=== PATIENT | male | born 1930 | race Native Hawaiian/Other Pacific Islander ===

== ENCOUNTER 2016-04-17 10:10 | Inpatient (IN) | payer OTHER ==
[2016-04-16 19:25] VITALS: BP 125/42
[~2016-04-17] VITALS: Ht 175.3 cm; Wt 90.7 kg
[2016-04-17] VITALS (22 sets, daily range): BP systolic 107–139; BP diastolic 43–57; TEMP 98.9–103
--- NOTE | 2016-04-17 09:27 | NUR ---
PT ARRIVED FROM [facility] VIA BED ACCOMPANIED BY [facility] STAFF, O2 GOING AT 2LPM VIA NC, IV 22G RFA INTACT SALINE LOCK, PT TRANSFERRED TO ICU BED AND PLACED ON MONITOR, O2 SAT INITIALLY 88% ON 2 LPM VIA NC, PT PLACED ON VENTI MASK AT 50% AND O2 SAT CAME UP TO 98%. 16 FR JIMENEZ CATH INTACT. REPORT GIVEN TO JJ OLEARY RN FROM [facility] AT [facility]. REPORT THAT PT HAS NOT BEEN EATING AND IS DROWSY, TEMP OF 102 THIS MORNING AT 0600, TEMP UPON ARRIVAL TO UNIT WAS 103.0 AXILLARY. TYLENOL 650 MG HI OVERRODE FROM OMNICELL AND GIVEN PER ORDER OF DR. IRIZARRY. UNABLE TO SCAN MEDICATION DUE TO PT NOT BEING REGISTERED AT TIME OF DOSE. (OK'ED BY VIRIDIANA FULLER LPN). WILL MONITOR.
[~2016-04-17 10:10] MED LIST: ACCU-CHEK; ACID CONTROL10 MG PO; ARANESP IJ; ASPIRIN LOW STR81 MG PO; ATIVAN2 MG PO; BRIMONIDINE0.2 % OP; BUSPIRONE10 MG PO; CLON0.5T36 PO; CORRECTOL100 MG PO; ECOTRIN REGULA325 MG PO; IRON325 MG PO; LIPITOR20 MG PO; LORA2INJ21 INJ; LORTAB 10-325 M1 TAB PO; NEURONTIN 100M100 MG PO; ONDA4TAB3 PO; PACERONE200 MG PO; POLY3350 PO; REFRESH TEARS0.5 % OP; SEROQUEL25 MG PO; SERT50TA PO; TRAZ50TA36 PO; VITAMIN B-121000 MCG PO; XALATAN0.005 % OP; [UNRECOGNIZED DRUG - OTHER] PO
--- NOTE | 2016-04-17 10:47 | NUR ---
X-RAY HERE TAKING CHEST X-RAY AT THIS TIME.
--- NOTE | 2016-04-17 10:53 | NUR ---
DR. IRIZARRY HERE MAKING ROUNDS WITH KODI.
--- NOTE | 2016-04-17 15:50 | NUR ---
PT CALLED AND GAVE CODE THAT WAS ESTABLISHED FROM WHEN PT WAS AT [facility]IT, ASKING TO SPEAK WITH PT, PHONE TAKEN OVER AND HELD TO PTS EAR. PT VOCALIZED . UPDATED THAT WE ARE MONITORING PT CLOSELY. SHE STATED SHE WOULDNT BE ABLE TO COME VISIT PT BECAUSE SHE DOESNT HAVE A WAY TO GO AND SHE LIVES IN [place]. STATED SHE WOULD CALL BACK LATER TO CHECK ON PT. WILL MONITOR.
[2016-04-17] MEDS ORDERED: HYDR10TA47 PO (17:35)
[2016-04-17] MEDS ORDERED: PANT40TA PO (17:38)
--- NOTE | 2016-04-17 18:15 | NUR ---
SPOKE WITH DR. IRIZARRY ABOUT PT URINE OUTPUT OF 250 ML FOR ENTIRE SHIFT, NEW ORDERS RECIEVED TO START NORMAL SALINE AT 125 ML/HR AND REPEAT BNPEPTIDE AT 0600 IN MORNING WITH MORNING LABS, WILL MONITOR.
--- NOTE | 2016-04-17 20:31 | NUR ---
PT'S CALLED TO CHECK ON PT.
[2016-04-18] VITALS (26 sets, daily range): BP systolic 77–165; BP diastolic 38–70; TEMP 98–100.8
[2016-04-18 05:57] LABS: PLATELET COUNT 257 K/uL (142-355)
--- NOTE | 2016-04-18 08:00 | NUR ---
PTS RHYTHM ST TO AFIB, HR 115-137
--- NOTE | 2016-04-18 09:32 | NUR ---
PT CLEANED AND DRYED OF BM.
--- NOTE | 2016-04-18 12:09 | NUR ---
PT STATES THAT HE HAS TO USE THE BATHROOM, PT STATES THAT HE NEEDS TO PEE, PT WAS INFORMED THAT HE HAD A JIMENEZ CATH AND WAS SHOWN THE CATH AND EXPLAINED THE USE.
--- NOTE | 2016-04-18 14:03 | NUR ---
MOUTHCARE DONE, PT WAS ASKED IT THAT FELT BETTER, HE STATED YES.
--- NOTE | 2016-04-18 15:35 | NUR ---
DR IRIZARRY CALLED TO BS DUE TO PT IN DISTRESS
--- NOTE | 2016-04-18 15:40 | NUR ---
LASIX 60MG IV GIVEN
--- NOTE | 2016-04-18 15:45 | NUR ---
INCREASED CARDIZEM 7.5MG/HR PER MD
--- NOTE | 2016-04-18 15:50 | NUR ---
ATIVAN 1MG IV GIVEN
--- NOTE | 2016-04-18 16:00 | NUR ---
O2% INCREASEED TO 50%. PT CONT IN ST - AFIB
--- NOTE | 2016-04-18 16:32 | NUR ---
STARTED DOPAMINE @3MCG/KG/MIN
--- NOTE | 2016-04-18 17:09 | NUR ---
FIO2 INCREASED 60%
--- NOTE | 2016-04-18 17:10 | NUR ---
INCREASED DOPAMINE 5MCG/KG/MIN DUE TO DECREASED BP MAP 53
--- NOTE | 2016-04-18 18:10 | NUR ---
INCREASED BUMEX 1MG/HR
--- NOTE | 2016-04-18 18:43 | NUR ---
REPORTED CPK TO DR IRIZARRY. ALSO REPORTED THAT DOPAMINE WAS INCREASED, HR 140, BUMEX INCREASED, AND DECREASED UOP.
--- NOTE | 2016-04-18 18:44 | NUR ---
BARBARA TO YEND. PT CURRENTLY ON BIPAP. SATS 96%.
--- NOTE | 2016-04-18 20:00 | NUR ---
PT USING/WEARING BIPAP. CARDIZEM DRIP DECREASED TO 5. HR 119-128. BP IMPROVING. DOPAMINE INFUSING AT 7MCG/KG/MIN. BUMEX DRIP INFUSING AT 1 MG/HR. CM SHOWING SINUS TACH. PT RESTING. JIMENEZ CATHETAR INTACT TO BSD. MONITORING HOURLY OUTPUTS. NO SKIN BREAKDOWN NOTED. PT BEING TURNED AND REPOSTIONED EVERY 2 HOURS.
[2016-04-19] VITALS (31 sets, daily range): BP systolic 105–145; BP diastolic 37–90; TEMP 97–99.5
--- NOTE | 2016-04-19 01:28 | NUR ---
0000PM PT'S ID SCAN WOULD NOT SCAN FOR PIPERACILLAN.
--- NOTE | 2016-04-19 03:26 | NUR ---
BED BATH GIVEN. NOTED SKIN ABRASION SIZE OF A DIME TO BACK SCROTUM AREA. AREA WAS CLEANED WITH SOAP/WATER AND THEN CALAZIME OINTMENT WAS APPLIED TO THIS AREA. SKIN CARE GIVEN. BONY PROMINENCES WERE MASSAGED. NO OTHER SKIN BREAKDOWN NOTED. PT TOLERATED WITHOUT AND DISCOMFORT OR DISTRESS NOTED. CM WITH SINUS RHYTHM. VITAL SIGNS STABLE.
--- NOTE | 2016-04-19 04:01 | NUR ---
CARDIZEM DRIP TITRATED OFF. MONITORING BP AND HEART RATE. DOPAMINE INFUSING AT 17.6MCG/KG/MINUTE. BUMEX INFUSING AT 5 MG/5ML VIA PUMP.
--- NOTE | 2016-04-19 05:50 | NUR ---
LABS DRAWN AND UA SENT TO LAB. EMPTIED 550 ML OF YELLOW URINE.PT DOES RESPOND. OPENS EYES AND MOVES HEAD. DOPAMINE INFUSING 17.6 ML/HR VIA PUMP. BUMEX AT 5 MG/5 ML. URINE OUTPUT 550 ML. URINE IS CLEARER. LUNGS CTA. HEART SOUNDS STRONG AND BOUNDING. CM AT 84-86.
[2016-04-19 06:14] LABS: PLATELET COUNT 243 K/uL (142-355)
--- NOTE | 2016-04-19 07:30 | NUR ---
AM ASSESSMENT DONE. RT HERE FOR EKG AND BREATHING TX.
--- NOTE | 2016-04-19 08:40 | NUR ---
LAB REPORTED PT'S BLOOD CULTURES ARE POSITIVE FOR STREP PNEUMONIA. DR. IRIZARRY NOTIFIED. PT REPOSITIONED TO L SIDE.
--- NOTE | 2016-04-19 09:54 | NUR ---
PT OFF OF BUMEX DRIP. MED NOT AVAILABLE AT THIS TIME. DR. EDIE BONE.
--- NOTE | 2016-04-19 10:04 | NUR ---
REPOSITIONED PT TO R SIDE.
--- NOTE | 2016-04-19 10:15 | NUR ---
DR. IRIZARRY HERE TO SEE PT.
--- NOTE | 2016-04-19 12:15 | NUR ---
FAMILY CALLED TO CHECK ON PT.
--- NOTE | 2016-04-19 14:14 | NUR ---
PT REPOSITIONED TO L SIDE. NAD NOTED AT THIS TIME.
--- NOTE | 2016-04-19 15:56 | NUR ---
HR 85, BP 122/55. SINUS RHYTHM WITH BBB NOTED. DR. IRIZARRY ORDERED CARDIAZEM DRIP @ 3MCG/HR FOR 24 HOURS. DRIP STARTED. WILL CONTINUE TO MONITOR.
--- NOTE | 2016-04-19 18:02 | NUR ---
dopamine drip infusing. new bag started now. on emar its showing for 04/20/16.
--- NOTE | 2016-04-19 19:30 | NUR ---
ASSESSMENT COMPLETED AT THIS TIME. PATIENT OPENS EYES WHEN STANDING AT THE BEDSIDE BUT DOES NOT VERBALLY RESPOND TO SIMPLE COMMANDS. IV 20G TO RFA INFUSING DOPAMINE AND CARDIZEM. JIMENEZ NOTED WITH 25ML OF YELLOW URINE NOTED. BIPAP NOTED AT 60%, SATS 100%, RR-28. SIDERAILS UP X2,CALL VILLEDA WITHIN REACH.
[2016-04-20] VITALS (45 sets, daily range): BP systolic 100–141; BP diastolic 26–54; TEMP 98.2–99.5
--- NOTE | 2016-04-20 07:30 | NUR ---
AM ASSESSMENT DONE. SINUS RYTHM WITH A BBB NOTED ON THE MONITOR. HR 86. PT IS ON A CARDIAZEM DRIP @ 3MG/HR AND DOPAMINE DRIP @ 5MCG/HR, BP128/52. PT IS ON BIPAP O2 SAT 99%. WILL CONTINUE TO MONITOR.
--- NOTE | 2016-04-20 08:00 | NUR ---
REPOSITIONED PT TO L SIDE.
[2016-04-20 08:07] LABS: PLATELET COUNT 260 K/uL (142-355)
[2016-04-20 08:27] LABS: POTASSIUM 4.2 mmol/L (3.6-5.2)
--- NOTE | 2016-04-20 08:50 | NUR ---
LABS REPORTED TO DR. IRIZARRY. NO NEW ORDERS RECEIVED AT THIS TIME.
--- NOTE | 2016-04-20 12:00 | NUR ---
PT RECEIVING 500ML NS BOLUS.
--- NOTE | 2016-04-20 12:48 | NUR ---
DR. IRIZARRY HERE TO SEE PT.
--- NOTE | 2016-04-20 13:15 | NUR ---
FERNANDA NAIR D/C'D PER DR. IRIZARRY'S ORDER.
--- NOTE | 2016-04-20 14:00 | NUR ---
URINE OUTPUT 75ML.
--- NOTE | 2016-04-20 15:16 | NUR ---
PT'S FAMILY CALLED TO CHECK ON PT. NAD NOTED AT THIS TIME.
--- NOTE | 2016-04-20 17:16 | NUR ---
PT REPOSITIONED. WILL CONTINUE TO MONITOR.
--- NOTE | 2016-04-20 20:00 | NUR ---
PM ASSESS. PT. ON BIPAP REGULATED BY RESPIRATORY. PT. ONLY RESPONDS WITH EYES SOME OR WITH A TOUCH HE HAS A TREMOR. I DO NOT KNOW HOW MUCH HE UNDERSTANDS WHEN I TELL HIM WHAT IM DOING, OR WHY I'M DOING. AT THIS POINT HE IS TOTAL CARE PHYSICALLY. HE HAS IV OF NS WITH 1 AMP OF BICARB INFUSING IN LT. FA @ 50ML/HR WITH A 20 GA. DOPAMINE DRIP HANGING @ 5MCG/KG/MIN = 17.6ML/HR WITH A 22GA IN RT FA. BOTH SIGHTS WITHOUT ANY SWELLING OR REDNESS. FOLY CATH WITH GRADUATE NOTED WITH YELLOW URINE AND EMPTIED 125 IN BAG.
--- NOTE | 2016-04-20 20:20 | NUR ---
PT. CALLED TO CHECK ON HIM -GLADYS- LEI. I EXPLAINED THERE IS NOT MUCH THAT HAS CHANGED WITH HIM. WE ARE STILL KEEPING HIM TURNED, HE HAS IV'S ONE TO KEEP HIS BP UP. I EXPLAINED AT HIS AGE HE DOES NOT HAVE MUCH TO FIGHT WITH BUT AT THIS TIME WE ARE DOING ALL WE CAN. I ASKED IF SHE WOULD LIKE ME TO CARRY THE PHONE OVER TO HIM AND HOLD IT TO HIS EAR. HE IS NOT RESPONDING NOW BUT MAYBE HE CAN HEAR YOU TALKING TO HIM. WHEN I CARRIED THE PHONE OVER, I EXPLAINED TO HIM IT WAS HIS LEI ON THE PHONE AND I AM GOING TO PLACE THE PHONE TO YOUR EAR AND LET HER TALK TO YOU. IT DID APPEAR THAT HIS EYES WATERED SOME WHILE SHE WAS TALKING TO HIM. I JUST PRAY HE UNDERSTANDS HER.
--- NOTE | 2016-04-20 20:45 | NUR ---
BLOODSUGAR 160 NO INSULIN GIVEN DUE TO AGE AND BEING HELD NPO.
--- NOTE | 2016-04-20 22:30 | NUR ---
PT NOTED TO BE BREATHING SLIGHTLY FASTER AND BODY WORKING HARDER TEMP TAKEN AND 99.5 AX
--- NOTE | 2016-04-20 22:53 | NUR ---
TYLENOL 650MG SUPP PER RECTUM WITH ASSISTANCE.
--- NOTE | 2016-04-20 23:15 | NUR ---
DOPAMINE INCREASED DUE TO BP 100/36 WITH MEAN OF 54. DOPAMINE INCREASED TO 7.5MGC/KG/MIN = 26.3ML/HR.
[2016-04-21] VITALS (47 sets, daily range): BP systolic 108–140; BP diastolic 37–77; TEMP 98.3–100.1
--- NOTE | 2016-04-21 | NUR ---
PT. TURNED AND REPOSITIONED ARMS AND LEGS ALSO. TEMP RETAKEN 99.5 AX AGAIN. REMOVED THE BLANKET OFF OF HIM.
--- NOTE | 2016-04-21 02:00 | NUR ---
PILLOW REMOVED FROM BACKSIDE TO LAY LOW FOWLERS. ARMS AND LEGS ELEVATED WITH PILLOWS.
--- NOTE | 2016-04-21 04:13 | NUR ---
BED BATH GIVEN AND LOTIONED WITH LUBRIDERM, MOUTH CARE GIVEN AND LINEN CHANGED. TALKING ALL ALONG WHILE CARING FOR HIM FOR STIMULATION.
--- NOTE | 2016-04-21 06:05 | NUR ---
LABS DRAWN AND SENT TO LAB.
--- NOTE | 2016-04-21 07:00 | NUR ---
AM ASSESSMENT COMPLETED. PT IS ON DOPAMINE DRIP AT 7.5 MCG/KG
[2016-04-21 08:27] LABS: POTASSIUM 4.2 mmol/L (3.6-5.2)
--- NOTE | 2016-04-21 08:45 | NUR ---
PT C/O PAIN RIGHT LEG. STATES SHE PULLED A MUSCLE DURING THE NIGHT. PAIN SCALE 10.
--- NOTE | 2016-04-21 09:00 | NUR ---
CBC REDRAWN. TO LAB
[2016-04-21 09:09] LABS: PLATELET COUNT 268 K/uL (142-355)
--- NOTE | 2016-04-21 09:14 | NUR ---
10 UNITS NOVOLOG GIVEN FOR GLUCOSE OF 496
--- NOTE | 2016-04-21 09:24 | NUR ---
RESPIRATORY THERAPIST TO SEE PT
--- NOTE | 2016-04-21 11:15 | NUR ---
DR. IRIZARRY TO SEE PT.
--- NOTE | 2016-04-21 12:02 | NUR ---
RESPIRATORY THERAPIST PRESENT TO OBTAIN ABG
--- NOTE | 2016-04-21 12:16 | NUR ---
LAB PRESENT TO DRAW BLOOD FOR CROSSMATCH.
--- NOTE | 2016-04-21 17:40 | NUR ---
FIRST UNIT PRBC'S INITIATED.
--- NOTE | 2016-04-21 19:30 | NUR ---
RCD PT BLOOD RUNNING NO S/S REACT NOTED OPENS EYES TO VERBAL STIMULUS ON BIPAP O2 60% 16/5 TOLERATING. MONITOR SR,DOPAMINE 7.5MCG/KG/MIN JIMENEZ CLEAR YELLOW URINE.
--- NOTE | 2016-04-21 21:45 | NUR ---
UNIT #1 FINISHED BLOOD D/C BAG TO LAB NOS/S REACT NOTED.
--- NOTE | 2016-04-21 21:52 | NUR ---
UNIT #2 STARTED NO S/S NOTED TURNED AND POSITIONED NO CHANGE NEURO STATUS
--- NOTE | 2016-04-21 23:00 | NUR ---
RESTING NO CHANGE BIPAP MAINTAINED OUT ADEQUATE
[2016-04-22] VITALS (24 sets, daily range): BP systolic 86–137; BP diastolic 36–99; TEMP 99.7–100.8
--- NOTE | 2016-04-22 | NUR ---
NO CHANGE DOPAMINE 7.5 MCG/KG/MIN 26.3ML BLOOD ABSORBING TURNEDAND REPOSITIONED HEELS ELEVATED BIPAP MAINTAINED
--- NOTE | 2016-04-22 00:35 | NUR ---
BLOOD FULLY ABSORBED D/C NOS/S/ REACT NOTED N/S WITH BICARBRESTARTEDAT 50CC/HR BIPAP.DOPAMINE MAINTAINED NO CHANGE.
--- NOTE | 2016-04-22 01:00 | NUR ---
BIPAP MAINTAINEDRESP RAPID/SHALLOW, OUTPUT 100/150 HR DOPAMINE DECREASED TO 5 MCG/KG/MIN 17.6 ML. NSWITH BICARB AT 50CC/HR NO CHANGE IN NEURO STATUS.
--- NOTE | 2016-04-22 02:00 | NUR ---
BP 125/47 MEAN 61 BIPAP MAINTAINED RESPSHALLOW/RAPID NEURO STATUS UNCHANGED
--- NOTE | 2016-04-22 04:00 | NUR ---
NO CHANGE RESP RAPID SHALLOW, LOWER LOBES DIMINISHED RR 30. DOPAMINE CONT AT 5 MCG/KG/MIN BICARB 50CC/HR TURNED AND POSITIONED.
--- NOTE | 2016-04-22 05:29 | NUR ---
BLOOD DRAWN TO LAB X1 TAHMINA NO CHANGE NEURO STATUS.
[2016-04-22 06:03] LABS: PLATELET COUNT 257 K/uL (142-355)
[2016-04-22 06:22] LABS: POTASSIUM 4.4 mmol/L (3.6-5.2)
--- NOTE | 2016-04-22 08:10 | NUR ---
AX TEMP 100.8. TYLENOL SUPP GIVEN. WILL RECHECK.
--- NOTE | 2016-04-22 08:20 | NUR ---
DR. IRIZARRY NOTIFIED OF LABS. NEW ORDERS RECEIVED.
--- NOTE | 2016-04-22 08:44 | NUR ---
AX TEMP 102.2. RR 47. WILL CONTINUE TO MONITOR.
--- NOTE | 2016-04-22 11:00 | NUR ---
dr. west here to see pt.
--- NOTE | 2016-04-22 11:15 | NUR ---
RR 49. PT APPEARS TO BE AGITATED. RECEIVED ORDER FOR ATIVAN. MED GIVEN.
--- NOTE | 2016-04-22 11:30 | NUR ---
RAD HERE FOR CHEST XRAY.
--- NOTE | 2016-04-22 11:50 | NUR ---
PT SEEMS TO BE LESS AGITATED. RR ARE STILL 49. TEMP 100.8 AX. TYLENOL SUPP GIVEN AND CALAMAZINE CREAM APPLIED TO R BUTTOCK.
--- NOTE | 2016-04-22 11:50 | NUR ---
ABG AND BLOOD CULTURES DRAWN.
--- NOTE | 2016-04-22 13:40 | NUR ---
TURNED PT'S SPO2 DOWN ON BIPAP FROM 60% TO 40% TO TRY AND WEAN PT TO TELL IF ABLE TO TAKE PT OFF TO INDUSE AND OBTAIN SPUTUM. SPO2 DROPED FROM 98% TO 92% WITH IN 5 MIN SO O2 WAS TURNED BACK UP TO 60%. DID NOT ATEMPTED TO TAKE OFF BIPAP AT THIS TIME.
--- NOTE | 2016-04-22 14:15 | NUR ---
PT REPOSITIONED. WILL CONTINUE TO MONITOR.
--- NOTE | 2016-04-22 14:54 | NUR ---
AX TEMP 101.4.
--- NOTE | 2016-04-22 14:55 | NUR ---
DECREASED DOPAMINE TO 3MCG/HR. WILL CONTINUE TO MONITOR.
--- NOTE | 2016-04-22 15:08 | NUR ---
PLACED PT ON COOLING BLANKET. RECTAL TEMP 100.7.
--- NOTE | 2016-04-22 16:00 | NUR ---
BATH GIVEN. BED LINENS CHANGED. PT HAS AREAS TO BUTTOCKS THAT APPEARS TO BE SKIN TEARS, THE SKIN LOOKS LIKE ITS SLOUGHING. R BUTTOCKS 3 VERY SMALL 0.1CM AREAS. 2 CENTER OF CRACK PINPOINT AND L BUTTOCKS 0.5W X 3CML AND L BUTTOCKS 0.5W X 0.5L. SKIN TEAR TO SCROTUM 0.5CMW X 1CML. CALAMAZINE CREAM APPLIED TO AREAS. MOUTH CARE DONE. PT'S MOUTH VERY DRY, SQUIRTED WATER IN MOUTH AND SUCTIONED WATER BACK OUT, MIXED PEROXIDE AND WATER AND USED TOOTH BRUSH TO SCRUB MOUTH. LIPS LUBRICATED. PT HAS BREAKDOWN TO FACE WHERE BIPAP MASK IS, LUBRICATE APPLIED AND 4X4S APPLIED TO FACE FOR CUSHION. BIPAP PUT BACK ON PT. HR 110'S, O2 SAT 88%. WILL CONTINUE TO MONITOR.
--- NOTE | 2016-04-22 17:00 | NUR ---
BP 88/39, DOPAMINE DRIP INCREASED TO 5MCG/HR. WILL CONTINUE TO MONITOR.
--- NOTE | 2016-04-22 17:17 | NUR ---
BP 99/45 DOPAMINE INCREASED TO 7.5MCG/HR. WILL CONTINUE TO MONITOR.
--- NOTE | 2016-04-22 17:50 | NUR ---
BP 98/49, HR 115, O2 SAT 98%, RR 47. WILL CONTINUE TO MONITOR.
--- NOTE | 2016-04-22 18:00 | NUR ---
RECTAL TEMP 99.5. COOLING BLANKET OFF AT THIS TIME. WILL CONTINUE TO MONITOR.
[2016-04-23] VITALS (25 sets, daily range): BP systolic 108–134; BP diastolic 36–93; TEMP 97.6–99.5
[2016-04-23 01:23] LABS: POTASSIUM 5.1 mmol/L (3.6-5.2)
--- NOTE | 2016-04-23 01:36 | NUR ---
DR. IRIZARRY NOTIFIED OF CRIT LAB VALUES: RUN 209 AND CREATININE 7.0; NO NEW ORDERS GIVEN.
--- NOTE | 2016-04-23 02:56 | NUR ---
CHANGE IN RESP FUNCTION OBSERVED, WITH BRIEF INTERVALS OF APNEA; RESP DECREASED TO 18. PER RT, BIPAP SET AT 12 FOR BACK UP.
[2016-04-23 06:24] LABS: PLATELET COUNT 250 K/uL (142-355)
[2016-04-23 06:32] LABS: POTASSIUM 4.8 mmol/L (3.6-5.2)
--- NOTE | 2016-04-23 08:05 | NUR ---
BS @ 0600 = 305, Novolog 4 units given. Ron Curry RN, attempted to sign as co-signor when medication was charted but unable to do so at this time.
--- NOTE | 2016-04-23 08:15 | NUR ---
Notified by Jaclyn Tobar of lab Phosphorus 8.5 after it was repeated. V/o understanding and advised Cici Kulkarni RN, of same. No new orders at this time.
--- NOTE | 2016-04-23 11:36 | NUR ---
Dr. Fu at bedside and ordered NS with bicarb be d/c'd immediately and D5W be started stat.
--- NOTE | 2016-04-23 11:40 | NUR ---
Dr. Fu at bedside assessing Pt. New orders received at this time.
--- NOTE | 2016-04-23 12:37 | NUR ---
BS 321, 5 units of Novolog givenn to left arm.
--- NOTE | 2016-04-23 15:30 | NUR ---
Assessed Pt's wound to upper sacrum and applied Calizine to areas. Area to upper sacrum is 6cm x 1cm and 1.5cm x0.5cm thru sacral folds bilateral across scrotum. Upper and lateral nose x2 duoderm applied to nasal areas.
--- NOTE | 2016-04-23 16:03 | NUR ---
Pt's called to check the status of Pt. Report given to at this time. advised she and her son might come and visit Pt tomorrow. I encouraged Mrs. Daniels to do so.
--- NOTE | 2016-04-23 16:49 | NUR ---
[id number] Call placed by Christian James LPN to Dr. Nickie MD to clarify Dopamine administration. New orders received. Scanned and faxed to pharmacy.
--- NOTE | 2016-04-23 17:00 | NUR ---
BS 364 @ this time. 7 units of Novolog given at this time to left arm. Pt tolerated well. Still unable to chart same thru [employer] due to [employer] unable to accept Co-Signor signature.
--- NOTE | 2016-04-23 17:54 | NUR ---
Blood drawn at this time per physician orders. Pt tolerated well.
--- NOTE | 2016-04-23 17:55 | NUR ---
TOOK PT OFF BIPAP SO NURSE JUSTYN COULD DO MOUTH CARE AND PLACE DUODERM ON SKIN UNDER BIPAP MASK AND PLACED PT ON 100% NR TO WATCH. PT'S SPO2 IS AT 96% AT THIS TIME. WILL WAIT AND DO 1800 ABG AFTER PT ON NON REBREATHER FOR 15 MIN.
[2016-04-23 18:56] LABS: PLATELET COUNT 256 K/uL (142-355)
[2016-04-23 19:07] LABS: POTASSIUM 4.7 mmol/L (3.6-5.2)
--- NOTE | 2016-04-23 20:15 | NUR ---
[address] Fu per his request with lab results. Critical values - BUN - 219, Creatinine - 7.2, and Magnesium - 3.0. Also, sodium - 151, chloride - 117, calcium - 7.7, Phoshorus - 7.8. Shared concern that bipap mask was causing significant skin irritation to bridge of nose and sides of nose bilaterally. New order noted. Non-rebreather applied per RT. Sat 95% at 15 LPM.
--- NOTE | 2016-04-23 23:25 | NUR ---
DR. AGUILLON IN ER CALLED INFORMED OF PT. SOUNDING WET IN LUNGS, D5W @ 150ML/HR, AND PT. BREATHING 60 MIN WAS ON BIPAP AND CHANGED TO NONREBREATHER DUE TO PRESSURE AREAS ON NOSE. NEW ORDERS GIVEN, REPEATED AND NOTED.
[2016-04-24] VITALS: BP 110/71; TEMP 98.6
[2016-04-24 01:00] VITALS: BP 112/40
[2016-04-24 02:00] VITALS: BP 115/41
[2016-04-24 03:00] VITALS: BP 125/52
--- NOTE | 2016-04-24 03:50 | NUR ---
LAB IN TO DRAW MORNING LABS.
[2016-04-24 04:00] VITALS: BP 100/33; TEMP 98.7
[2016-04-24 04:00] LABS: PLATELET COUNT 209 K/uL (142-355)
[2016-04-24 04:11] LABS: POTASSIUM 5.5 mmol/L (3.6-5.2)
[2016-04-24 05:00] VITALS: BP 104/37
--- NOTE | 2016-04-24 05:00 | NUR ---
NOTIFIED RESPIRATORY TO COME CHECK PT. O2 SATS DROPING DOWN TO 60'S, 70'S, THEN BACK UP TO 80'S WITH HR BEING TO 110'S THEN BACK DOWN.
--- NOTE | 2016-04-24 05:18 | NUR ---
RESP. DID BLOOD GAS, I TOLD HIM JUST SOON I GET THE RESULTS I WILL CALL DR. AGUILLON ON HIS LABS ALSO.
--- NOTE | 2016-04-24 05:30 | NUR ---
DR. ALEXANDRE CALLED ASKED HIM TO COME TO ICU, I HAVE A PT. WITH CRITICAL LABS AND ABG. IT IS THE PT. THAT I HAVE CALLED YOU ABOUT ALL NIGHT. HE IS FIXING TO CRASH AND HE IS A FULL CODE.
--- NOTE | 2016-04-24 05:40 | NUR ---
DR AGUILLON HERE AND LOOKING AT PT. ASKING QUESTIONS, AND LABS GIVEN ALONG WITH X-RAYS.
--- NOTE | 2016-04-24 05:50 | NUR ---
DR. ALEXANDRE ORDERED VERSED 5MG IV, PULLED FROM OMNICIL, AND GIVEN IV MIXED WITH NS IVP.
--- NOTE | 2016-04-24 05:58 | NUR ---
SUCCS 80MG PULLED FROM [facility] FOR RAPID INTUBATION KIT. GIVEN IV PUSH ORDERED, WITH MARYELLEN ARAIZA RN ASSISTING ALSO. SUCCS GIVEN DUE TO PT. WANTING TO TAKE HANDS AND PUSH AWAY. RESP. STARTED BAGGING, AFTER ATTEMPT TO INTUBATE WITH SIZE 8 ET TUBE. UNABLE TO PUT IN, SO STARTED BAGGING AGAIN.
--- NOTE | 2016-04-24 06:02 | NUR ---
MD ATTEMPT TO INTUBATE, AND UNABLE TO DO MD ASKED FOR SMALLER SIZE 7 ET TUBE GIVEN AND SUCTIONED PRIOR TO ATTEMPT. UNABLE TO INSERT PER MD.
--- NOTE | 2016-04-24 06:04 | NUR ---
NOTIFIED KATRIN NURSE TO COME PLEASE IF NOT BUSY. RESP. STARTED BAGING AGAIN.
--- NOTE | 2016-04-24 06:06 | NUR ---
DR. AGUILLON ASKED FOR FORCEPS AND REMOVED A CHUNK FROM AIRWAY.
--- NOTE | 2016-04-24 06:14 | NUR ---
BIPAP REAPPLIED PER RESPIRATORY AND PLACED AN AIRWAY IN THROAT PRIOR TO APPLYING BIPAP.
--- NOTE | 2016-04-24 06:16 | NUR ---
BIPAP REMOVED ORDERED WITH DR. AGUILLON AND RESPIRATORY STARTED BAGGING.
--- NOTE | 2016-04-24 06:30 | NUR ---
CODE CALLED ER STAFF STARTED COMPRESSIONS AND EMERGANCY CART MOVED TO BS.
--- NOTE | 2016-04-24 06:32 | NUR ---
JEANIE APPLIED WITH COLIN HARTMANN RN APPLYING.
--- NOTE | 2016-04-24 06:33 | NUR ---
EPI GIVEN 1AMP IVP ORDERED.
--- NOTE | 2016-04-24 06:34 | NUR ---
ER CRASH CART BEAM DYER OPERATOR APPLIED BY KATRIN OBANDO. BEAM DYER OPERATOR READY.
--- NOTE | 2016-04-24 06:36 | NUR ---
DR ALEXANDRE ORDERED EPI 1 AMP IVP GIVEN.
--- NOTE | 2016-04-24 06:38 | NUR ---
NO SHOCK ADVISED.
--- NOTE | 2016-04-24 06:39 | NUR ---
DR. AGUILLON ORDERED 1 AMP OF SODIUM BICARB IVP NOW. NO SHOCK ADVISED AND NO PULSE.
--- NOTE | 2016-04-24 06:40 | NUR ---
GIVE EPI AGAIN PER ORDERS OF DR. AGUILLON STANDING AT BEDSIDE.
--- NOTE | 2016-04-24 06:41 | NUR ---
EPI 1 AM ORDERED IV AGAIN PER DR. AGUILLON AND GIVEN ORDERED.
--- NOTE | 2016-04-24 06:42 | NUR ---
SIGN BOARD ERECTOR ADVISED AGAIN NOT TO SHOCK. NO PULSE.
--- NOTE | 2016-04-24 06:43 | NUR ---
DR. AGUILLON ORDERED 1 AMP AGAIN, AND GIVEN ORDERED WITH NO PULSE.
--- NOTE | 2016-04-24 06:44 | NUR ---
DR. AGUILLON CALLED CODE TO STOP.
--- NOTE | 2016-04-24 06:57 | NUR ---
CALLED [phone] AND SADLY INFORMED PT. THAT HER HAS THIS MORNING. DR. ALEXANDRE THEN GAVE ME THE PHONE FOR FURTHER INFO. SHE STATED SHE WOULD NOTIFY HER SON AND HE WILL CALL US BACK.
--- NOTE | 2016-04-24 07:50 | NUR ---
PT'S SON CALLED AND STATED HE WAS NOTIFYING [facility] IN [place].
--- NOTE | 2016-04-24 11:55 | NUR ---
[facility] HERE. PT OUT PER HOME.
== END 2016-04-24 11:55 | disposition expired | DRG 871 ==
LOC: ICU 10:10
PROVIDERS: Emergency Medicine; ADMIT Psychiatry & Neurology Psychiatry
PROC: 30233N1 Transfusion of Nonautologous Red Blood Cells into Peripheral Vein, Percutaneous Approach (ICD-10-PCS; principal; 2016-04-21)
DX: A40.3 Sepsis due to Streptococcus pneumoniae (principal); J18.8 Other pneumonia, unspecified organism; N17.8 Other acute kidney failure; N18.5 Chronic kidney disease, stage 5; R50.9 Fever, unspecified; I46.9 Cardiac arrest, cause unspecified; I50.9 Heart failure, unspecified; D64.89 Other specified anemias; E11.65 Type 2 diabetes mellitus with hyperglycemia; R31.9 Hematuria, unspecified; E83.39 Other disorders of phosphorus metabolism; E83.41 Hypermagnesemia
CPT/HCPCS: 36415; 36600; 80048; 80053; 80076; 81000; 82140; 82272; 82550; 82553; 82570; 82805; 82962; 83605; 83735; 83880; 84100; 84300; 84484; 84540; 85027; 85610; 85730; 86850; 86900; 86901; 86922; 87040; 87077; 87088; 87185; 87186; 87205; 93005; 93306; 94640; 94664; 94760; 96372; C1726; J0171; J0330; J1160; J1265; J1644; J1885; J1940; J2060; J2250; J3490; P9016